=== PATIENT | female | born 2000 | race Caucasian/White ===

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

== ENCOUNTER 2018-02-11 12:40 | Emergency (ER) | payer OTHER ==
[~2018-02-11] VITALS: Ht 175.3 cm; Wt 68.0 kg
[2018-02-11 13:11] LABS: *BILIRUBIN,URIN NEGATIVE (NEGATIVE); *BLOOD, URINE 2+ (NEGATIVE); *CLARITY,URINE CLEAR (CLEAR); *COLOR,URINE YELLOW (YELLOW); *KETONES,URINE NEGATIVE (NEGATIVE); *PROTEIN,URINE NEGATIVE (NEGATIVE); *UROBILINOGEN,URINE 0.2 E.U./dl (NORMAL); LEUKOCYTE ESTERASE ,URINE TRACE (NEGATIVE); NITRITE, URINE NEGATIVE (NEGATIVE); PH,URINE 8.5 (5.0-8.0); UGLUCOSE NEGATIVE (NEGATIVE)
[2018-02-11 13:19] LABS: *URINE HCG, QUAL NEGATIVE (NEGATIVE)
[2018-02-11 13:29] LABS: BACTERIA,URINE FEW /HPF (NONE SEEN); SQUAMOUS EPITHELIAL CELL,UR FEW /HPF (NONE SEEN)
[2018-02-11 13:43] LABS: BASOPHILS % (AUTO) 0.7 % (0.0-2.0); EOSINOPHILS % (AUTO) 0.4 % (0.0-7.0); HEMOGLOBIN 12.9 g/dL (10.9-14.3); LYMPHOCYTES # (AUTO) 0.7 K/uL (20.0-40.0); LYMPHOCYTES % (AUTO) 11.1 % (20.5-74.5); MEAN CORPUSCULAR HGB CONC 35 g/dL (32.3-35.6); MEAN CORPUSCULAR VOLUME 86.3 fL (75.5-95.3); MONOCYTES # (AUTO) 0.5 K/uL (2.0-10.0); MONOCYTES % (AUTO) 8.6 % (0-11); NEUTROPHILS # (AUTO) 4.9 K/uL (1.8-8.9); NEUTROPHILS % (AUTO) 79.2 % (31.5-64.5); PLATELET COUNT (AUTO) 193 K/uL (179-408); RED BLOOD CELL COUNT(AUTO) 4.29 MIL/uL (3.63-4.92); WHITE BLOOD COUNT (AUTO) 6.2 K/uL (3.8-11.8)
[2018-02-11 13:45] LABS: *BILIRUBIN,URIN NEGATIVE (NEGATIVE); *BLOOD, URINE 2+ (NEGATIVE); *CLARITY,URINE CLEAR (CLEAR); *COLOR,URINE YELLOW (YELLOW); *KETONES,URINE NEGATIVE (NEGATIVE); *PROTEIN,URINE NEGATIVE (NEGATIVE); *UROBILINOGEN,URINE 0.2 E.U./dl (NORMAL); LEUKOCYTE ESTERASE ,URINE NEGATIVE (NEGATIVE); NITRITE, URINE NEGATIVE (NEGATIVE); PH,URINE 8.5 (5.0-8.0); UGLUCOSE NEGATIVE (NEGATIVE)
--- NOTE | 2018-02-11 13:47 | NUR ---
Radiology at bedside for US.
[2018-02-11 13:55] LABS: BACTERIA,URINE FEW /HPF (NONE SEEN); SQUAMOUS EPITHELIAL CELL,UR FEW /HPF (NONE SEEN); WBC,URINE 0-3 /HPF (0-3)
[2018-02-11 13:57] LABS: BILIRUBIN,DIRECT 0.1 mg/dL (0.0-0.2); BILIRUBIN,TOTAL 0.5 mg/dL (0.2-1.0); CREATININE 0.7 mg/dL (0.6-1.3); POTASSIUM 3.5 mmol/L (3.5-5.1); TOTAL PROTEIN, SERUM 7.4 g/dL (6.4-8.2)
--- NOTE | 2018-02-11 14:10 | NUR ---
Radiology completed US, preliminary results to JENNIFER
--- NOTE | 2018-02-11 14:18 | NUR ---
Patient discharged to home in stable conditon. Written and verbal after care instructions given. Patient verbalizes understanding of instructions.
== END 2018-02-11 14:19 | disposition home or self-care (01) ==
LOC: ER 12:43
DX: N94.6 Dysmenorrhea, unspecified (principal); N93.9 Abnormal uterine and vaginal bleeding, unspecified
CPT/HCPCS: 36415; 76856; 84703; 85025; A4663

== ENCOUNTER 2018-04-25 22:13 | Emergency (ER) | payer OTHER ==
[~2018-04-25] VITALS: Ht 175.3 cm; Wt 68.0 kg
--- NOTE | 2018-04-25 22:30 | NUR ---
Patient walked into ER c/o dysuria and polyuria since this AM
[2018-04-25 22:38] LABS: *BLOOD, URINE 3+ (NEGATIVE); *CLARITY,URINE CLOUDY (CLEAR); *COLOR,URINE YELLOW (YELLOW); *KETONES,URINE 2+ (NEGATIVE); *PROTEIN,URINE 2+ (NEGATIVE); LEUKOCYTE ESTERASE ,URINE 3+ (NEGATIVE); NITRITE, URINE NEGATIVE (NEGATIVE); PH,URINE 5.5 (5.0-8.0); UGLUCOSE NEGATIVE (NEGATIVE)
[2018-04-25 22:41] LABS: *BILIRUBIN,URIN 1+ (NEGATIVE)
[2018-04-25 22:42] LABS: *URINE HCG, QUAL NEGATIVE (NEGATIVE)
[2018-04-25 22:44] LABS: BACTERIA,URINE MODERATE /HPF (NONE SEEN); RBC,URINE 20-50 /HPF (0-3); SQUAMOUS EPITHELIAL CELL,UR FEW /HPF (NONE SEEN); WBC,URINE 50-80 /HPF (0-3)
[2018-04-25] MEDS ORDERED: ONDANSETRON ODT 4 MG TAB.RAPDIS ONE (22:56)
[2018-04-25] MEDS ORDERED: LIDOCAINE HCL 1% 20 ML VIAL ONE (22:57)
[2018-04-25] MEDS ORDERED: CEFTRIAXONE 500 MG VIAL ONE (22:57)
[2018-04-25] MEDS ORDERED: PHENAZOPYRIDINE HCL 100 MG TABLET ONE (22:58)
[2018-04-25] MEDS ORDERED: ONDANSETRON ODT 4 MG TAB.RAPDIS SL ONE (23:00)
[2018-04-25] MEDS ORDERED: PHENAZOPYRIDINE HCL 100 MG TABLET PO ONE (23:00)
[2018-04-25] MEDS ORDERED: CEFTRIAXONE 500 MG VIAL IM ONE (23:00)
--- NOTE | 2018-04-25 23:06 | NUR ---
Patient discharged to home in stable conditon. Written and verbal after care instructions given. Patient verbalizes understanding of instructions. Walked into ER with no distress noted
[2018-04-25 23:07] VITALS: BP 108/57
== END 2018-04-25 23:07 | disposition home or self-care (01) ==
LOC: ER 22:13
DX: N39.0 Urinary tract infection, site not specified (principal); R11.2 Nausea with vomiting, unspecified
CPT/HCPCS: 81001; 84703; 87086; 96372; 99284; A4663; J0696; J3490; Q0162; 87077

== ENCOUNTER 2019-08-12 09:06 | Emergency (ER) | payer MEDICAID, OTHER ==
[~2019-08-12] VITALS: Ht 175.3 cm; Wt 63.5 kg
[2019-08-12 09:31] LABS: *BILIRUBIN,URIN NEGATIVE (NEGATIVE); *BLOOD, URINE 1+ (NEGATIVE); *CLARITY,URINE CLOUDY (CLEAR); *COLOR,URINE YELLOW (YELLOW); *KETONES,URINE NEGATIVE (NEGATIVE); *UROBILINOGEN,URINE 0.2 E.U./dl (NORMAL); LEUKOCYTE ESTERASE ,URINE 2+ (NEGATIVE); NITRITE, URINE NEGATIVE (NEGATIVE); PH,URINE 6.5 (5.0-8.0); UGLUCOSE NEGATIVE (NEGATIVE)
[2019-08-12 09:42] LABS: BACTERIA,URINE MODERATE /HPF (NONE SEEN); YEAST,URINE MANY /HPF (NONE SEEN)
[2019-08-12 09:43] LABS: *URINE HCG, QUAL NEGATIVE (NEGATIVE); MUCUS,URINE MODERATE /LPF (0-FEW)
[2019-08-12] MEDS ORDERED: FLUCONAZOLE 100 MG TABLET PO ONE (09:45)
[2019-08-12] MEDS ORDERED: IBUPROFEN 600 MG TABLET PO ONE (09:45)
[2019-08-12] MEDS ORDERED: IBUPROFEN 600 MG TABLET ONE (09:56)
[2019-08-12] MEDS ORDERED: FLUCONAZOLE 100 MG TABLET ONE (09:56)
--- NOTE | 2019-08-12 10:06 | NUR ---
Patient discharged to home in stable conditon & brisk steady gait. Written and verbal after care instructions given to patient. Patient verbalizes understanding & compliance of instructions.
== END 2019-08-12 10:09 | disposition home or self-care (01) ==
LOC: ER 09:07
DX: B37.3 Candidiasis of vulva and vagina (principal)
CPT/HCPCS: 84703; 87086; A4663

== ENCOUNTER 2019-10-09 22:35 | Emergency (ER) | payer MEDICAID, OTHER ==
[~2019-10-09] VITALS: Ht 175.3 cm; Wt 68.0 kg
--- NOTE | 2019-10-09 22:58 | NUR ---
PATIENT WAS MSE BY DR CABALLERO IN ROOM 05A.
[2019-10-09] MEDS ORDERED: IBUPROFEN 600 MG TABLET PO ONE (23:00)
[2019-10-09] MEDS ORDERED: ACETAMINOPHEN ES 500 MG TABLET PO ONE (23:00)
[2019-10-09] MEDS ORDERED: IBUPROFEN 600 MG TABLET ONE (23:10)
[2019-10-09] MEDS ORDERED: ACETAMINOPHEN ES 500 MG TABLET ONE (23:10)
[2019-10-09] MEDS ORDERED: DEXAMETHASONE SOD PHOSPHATE 4 MG INJ IM ONE (23:15)
[2019-10-09] MEDS ORDERED: PENICILLIN V POTASSIUM 500 MG TABLET PO ONE (23:15)
[2019-10-09] MEDS ORDERED: DEXAMETHASONE SOD PHOSPHATE 4 MG INJ ONE (23:15)
[2019-10-09] MEDS ORDERED: PENICILLIN V POTASSIUM 500 MG TABLET ONE (23:16)
--- NOTE | 2019-10-09 23:26 | NUR ---
Patient discharged to home in stable condition. Written and verbal after care instructions given. Patient verbalizes understanding of instructions.
[2019-10-09 23:28] VITALS: BP 112/73
[2019-10-09 23:37] LABS: *URINE HCG, QUAL NEGATIVE (NEGATIVE)
== END 2019-10-09 23:30 | disposition home or self-care (01) ==
LOC: ER 22:35
DX: J02.9 Acute pharyngitis, unspecified (principal); R50.9 Fever, unspecified
CPT/HCPCS: 84703; 96372; 99284; J1100; A4663; A9150

== ENCOUNTER 2020-04-26 08:32 | Emergency (ER) | payer OTHER ==
[~2020-04-26] VITALS: Ht 175.3 cm; Wt 70.3 kg
[2020-04-26 08:58] LABS: *BILIRUBIN,URIN NEGATIVE (NEGATIVE); *BLOOD, URINE 2+ (NEGATIVE); *COLOR,URINE YELLOW (YELLOW); *KETONES,URINE NEGATIVE (NEGATIVE); *UROBILINOGEN,URINE 0.2 E.U./dl (NORMAL); LEUKOCYTE ESTERASE ,URINE 1+ (NEGATIVE); NITRITE, URINE POSITIVE (NEGATIVE); UGLUCOSE NEGATIVE (NEGATIVE)
[2020-04-26] MEDS ORDERED: IV NORMAL SALINE 1000 ML BAG IV ONE (09:00)
[2020-04-26 09:06] LABS: BASOPHILS % (AUTO) 0.4 % (0.0-2.0); EOSINOPHILS % (AUTO) 0.4 % (0.0-7.0); HEMATOCRIT 37.9 % (31.2-41.9); HEMOGLOBIN 13.1 g/dL (10.9-14.3); LYMPHOCYTES # (AUTO) 1.6 K/uL (20.0-40.0); MEAN CORPUSCULAR HEMOGLOBIN 30.3 uug (24.7-32.8); MEAN CORPUSCULAR HGB CONC 35 g/dL (32.3-35.6); MEAN CORPUSCULAR VOLUME 87.5 fL (75.5-95.3); MONOCYTES # (AUTO) 0.6 K/uL (2.0-10.0); MONOCYTES % (AUTO) 6.6 % (0.0-11.0); NEUTROPHILS # (AUTO) 7.3 K/uL (1.8-8.9); NEUTROPHILS % (AUTO) 75.6 % (38.5-71.5); PLATELET COUNT (AUTO) 238 K/uL (179-408); RED BLOOD CELL COUNT(AUTO) 4.33 MIL/uL (3.63-4.92); WHITE BLOOD COUNT (AUTO) 9.6 K/uL (3.8-11.8)
[2020-04-26 09:18] LABS: BILIRUBIN,DIRECT 0.1 mg/dL (0.0-0.2); BILIRUBIN,TOTAL 0.4 mg/dL (0.2-1.0); CREATININE 0.8 mg/dL (0.6-1.3); POTASSIUM 3.7 mmol/L (3.5-5.1); TOTAL PROTEIN, SERUM 6.9 g/dL (6.4-8.2)
[2020-04-26 10:36] LABS: BACTERIA,URINE MODERATE /HPF (NONE SEEN); SQUAMOUS EPITHELIAL CELL,UR MODERATE /HPF (NONE SEEN)
[2020-04-26 10:37] LABS: WBC,URINE 50-80 /HPF (0-3)
[2020-04-26] MEDS ORDERED: SULFAMETH/TRIMETH 800/160 MG TABLET ONE (10:40)
[2020-04-26 10:45] LABS: *CLARITY,URINE CLOUDY (CLEAR)
[2020-04-26] MEDS ORDERED: SULFAMETH/TRIMETH 800/160 MG TABLET PO ONE (10:45)
--- NOTE | 2020-04-26 10:45 | NUR ---
Patient discharged to home in stable condition. Written and verbal after care instructions given. Patient verbalizes understanding of instructions. Stressed follow up or return to ER for worsening s/s.pt walks in steady gait.
[2020-04-26 11:02] VITALS: BP 109/69
== END 2020-04-26 10:50 | disposition home or self-care (01) ==
LOC: ER 08:32
DX: N39.0 Urinary tract infection, site not specified (principal)
CPT/HCPCS: 36415; 83690; 85025; 85730; 87086; A4663; J7030

== ENCOUNTER 2020-11-07 12:42 | Emergency (ER) | payer OTHER ==
[~2020-11-07] VITALS: Ht 175.3 cm; Wt 77.1 kg
--- NOTE | 2020-11-07 13:00 | NUR ---
Dr Cool at the bedside for MSE.
[2020-11-07 13:29] VITALS: BP 106/64
--- NOTE | 2020-11-07 13:30 | NUR ---
Patient discharged to home in stable condition. Written and verbal after care instructions given. Patient verbalizes understanding of instructions. Stressed follow up or return to ER for worsening s/s.
== END 2020-11-07 13:30 | disposition home or self-care (01) ==
LOC: ER 12:42
DX: H00.012 Hordeolum externum right lower eyelid (principal)
CPT/HCPCS: A4663

== ENCOUNTER 2021-02-07 20:39 | Emergency (ER) | payer OTHER ==
[~2021-02-07] VITALS: Ht 175.3 cm; Wt 72.6 kg
[2021-02-07] MEDS ORDERED: KETOROLAC TROMETHAMINE 60 MG INJ IM ONE (21:17)
[2021-02-07 21:32] LABS: *URINE HCG, QUAL NEG (NEGATIVE)
[2021-02-07 21:33] LABS: BASOPHILS # (AUTO) 0.1 K/uL (0.0-8.0); BASOPHILS % (AUTO) 0.6 % (0.0-2.0); EOSINOPHILS # (AUTO) 0.1 K/uL (0.0-0.7); EOSINOPHILS % (AUTO) 0.8 % (0.0-7.0); HEMATOCRIT 36.9 % (31.2-41.9); HEMOGLOBIN 12.8 g/dL (10.9-14.3); LYMPHOCYTES # (AUTO) 2.6 K/uL (20.0-40.0); LYMPHOCYTES % (AUTO) 26.6 % (20.5-51.5); MEAN CORPUSCULAR HEMOGLOBIN 29.9 uug (24.7-32.8); MEAN CORPUSCULAR HGB CONC 35 g/dL (32.3-35.6); MEAN CORPUSCULAR VOLUME 86.2 fL (75.5-95.3); MONOCYTES # (AUTO) 0.7 K/uL (2.0-10.0); MONOCYTES % (AUTO) 7.4 % (0.0-11.0); NEUTROPHILS # (AUTO) 6.2 K/uL (1.8-8.9); NEUTROPHILS % (AUTO) 64.6 % (38.5-71.5); PLATELET COUNT (AUTO) 249 K/uL (179-408); RED BLOOD CELL COUNT(AUTO) 4.29 MIL/uL (3.63-4.92); WHITE BLOOD COUNT (AUTO) 9.6 K/uL (3.8-11.8)
[2021-02-07 21:37] LABS: CARBON DIOXIDE 27 mmol/L (21-32); CHLORIDE 104 mmol/L (98-107); CREATININE 0.8 mg/dL (0.6-1.3); GLUCOSE 114 mg/dL (74-106); UREA NITROGEN, BLOOD 8 mg/dL (7-18)
[2021-02-07 21:43] LABS: ALANINE AMINOTRANSFERASE 11 U/L (14-59); ALKALINE PHOSPHATASE 75 U/L (50-136); ASPARTATE AMINOTRANSFERASE 13 U/L (15-37); BILIRUBIN,DIRECT 0.1 mg/dL (0.0-0.2); BILIRUBIN,TOTAL 0.3 mg/dL (0.2-1.0); TOTAL PROTEIN, SERUM 7.4 g/dL (6.4-8.2)
[2021-02-07 21:44] LABS: *AMPHETAMINE, URINE NEGATIVE (NEGATIVE); *CANNABINOID, URINE NEGATIVE (NEGATIVE); *COCCAINE, URINE NEGATIVE (NEGATIVE); *OPIATE, URINE NEGATIVE (NEGATIVE); *PHENCYCLIDINE SCREEN,URINE NEGATIVE (NEGATIVE)
[2021-02-07 21:53] LABS: ETHANOL < 3 MG/DL (0-0)
[2021-02-08] MEDS ORDERED: SWABABLE VALVE TRANSFER SET EA MC ONE (00:26)
[2021-02-08] MEDS ORDERED: IV NORMAL SALINE 250 ML IV ONE (00:26)
[2021-02-08] MEDS ORDERED: IOHEXOL 350 100 ML INFUS..BTL ONE (00:26)
[2021-02-08 01:41] VITALS: BP 110/68
[2021-02-08 05:47] LABS: *BILIRUBIN,URIN NEGATIVE (NEGATIVE); *BLOOD, URINE NEGATIVE (NEGATIVE); *CLARITY,URINE SLIGHTLY CLOUDY (CLEAR); *COLOR,URINE YELLOW (YELLOW); *KETONES,URINE NEGATIVE (NEGATIVE); *UROBILINOGEN,URINE 0.2 E.U./dl (NORMAL); LEUKOCYTE ESTERASE ,URINE TRACE (NEGATIVE); NITRITE, URINE NEGATIVE (NEGATIVE); PH,URINE 6.5 (5.0-8.0); UGLUCOSE NEGATIVE (NEGATIVE)
[2021-02-08 06:13] LABS: BACTERIA,URINE MODERATE /HPF (NONE SEEN); RBC,URINE 0-3 /HPF (0-3)
[2021-02-08 06:14] LABS: MUCUS,URINE FEW /LPF (0-FEW); SQUAMOUS EPITHELIAL CELL,UR MANY /HPF (NONE SEEN)
[2021-02-11 15:46] LABS: *GC NAA Negative; *TRIC.VAG. NAA Negative
== END 2021-02-08 01:43 | disposition home or self-care (01) ==
LOC: ER 20:49
DX: R55 Syncope and collapse (principal); R42 Dizziness and giddiness; R00.2 Palpitations; N89.8 Other specified noninflammatory disorders of vagina; R79.1 Abnormal coagulation profile
CPT/HCPCS: 36415; 70450; 71275; 80048; 80076; 80307; 80320; 81001; 84703; 85025; 85379; 87086; 87491; 93005; 99285; Q9967; A4663; G0480; J1885; J7050

== ENCOUNTER 2021-09-13 14:49 | Emergency (ER) | payer SELFPAY ==
--- NOTE | 2021-09-13 15:03 | NUR ---
pt left without being triaged.
== END 2021-09-13 15:04 | disposition left against medical advice (07) ==
LOC: ER 14:49
DX: Z53.21 Procedure and treatment not carried out due to patient leaving prior to being seen by health care provider (principal)

== ENCOUNTER 2023-05-18 00:01 | Emergency (ER) | payer OTHER ==
[~2023-05-18] VITALS: Ht 175.3 cm; Wt 90.7 kg
[2023-05-18] MEDS ORDERED: MORPHINE SULFATE 2 MG/1 ML DISP.SYRIN IV ONE (00:45)
[2023-05-18] MEDS ORDERED: ONDANSETRON 4 MG/2 ML VIAL IV ONE (00:45)
[2023-05-18] MEDS ORDERED: IV NORMAL SALINE 1000 ML BAG IV ONE (00:45)
[2023-05-18] MEDS ORDERED: ONDANSETRON 4 MG/2 ML VIAL ONE (00:47)
[2023-05-18] MEDS ORDERED: MORPHINE SULFATE 4 MG/1 ML DISP.SYRIN ONE (00:47)
[2023-05-18] MEDS ORDERED: MORPHINE SULFATE 2 MG/1 ML DISP.SYRIN ONE (00:48)
[2023-05-18 01:06] LABS: BASOPHILS # (AUTO) 0.2 K/UL (0.0-0.2); BASOPHILS % (AUTO) 1.5 % (0.0-2.0); EOSINOPHILS # (AUTO) 0.2 K/uL (0.0-0.7); EOSINOPHILS % (AUTO) 1.7 % (0.0-7.0); HEMOGLOBIN 13.1 g/dL (10.9-14.3); LYMPHOCYTES # (AUTO) 1.5 K/uL (0.8-4.8); LYMPHOCYTES % (AUTO) 12.9 % (20.5-51.5); MEAN CORPUSCULAR HEMOGLOBIN 28.5 uug (24.7-32.8); MEAN CORPUSCULAR HGB CONC 33 g/dL (32.3-35.6); MEAN CORPUSCULAR VOLUME 85.3 fL (75.5-95.3); MONOCYTES # (AUTO) 0.9 K/uL (0.1-1.30); MONOCYTES % (AUTO) 7.3 % (0.0-11.0); NEUTROPHILS # (AUTO) 8.9 K/uL (1.8-8.9); NEUTROPHILS % (AUTO) 76.6 % (38.5-71.5); PLATELET COUNT (AUTO) 280 K/uL (179-408); RED BLOOD CELL COUNT(AUTO) 4.58 MIL/uL (3.63-4.92); RED CELL DISTRIBUTION WIDTH 13.2 % (12.3-17.7); WHITE BLOOD COUNT (AUTO) 11.6 K/uL (3.8-11.8)
[2023-05-18 01:27] LABS: ALBUMIN 3.2 g/dL (3.4-5.0); BILIRUBIN,DIRECT 0.1 mg/dL (0.0-0.2); BILIRUBIN,TOTAL 0.3 mg/dL (0.2-1.0); CALCIUM 8.1 mg/dL (8.5-10.1); CREATININE 0.7 mg/dL (0.6-1.3); POTASSIUM 4.1 mmol/L (3.5-5.1); TOTAL PROTEIN, SERUM 7.1 g/dL (6.4-8.2)
[2023-05-18 01:58] LABS: *BILIRUBIN,URIN NEGATIVE (NEGATIVE); *CLARITY,URINE CLEAR (CLEAR); *COLOR,URINE YELLOW (YELLOW); *KETONES,URINE NEGATIVE (NEGATIVE); *PROTEIN,URINE NEGATIVE (NEGATIVE); *UROBILINOGEN,URINE 0.2 E.U./dl (NORMAL); LEUKOCYTE ESTERASE ,URINE NEGATIVE (NEGATIVE); NITRITE, URINE NEGATIVE (NEGATIVE); PH,URINE 5.5 (5.0-8.0); UGLUCOSE NEGATIVE (NEGATIVE)
[2023-05-18 02:10] LABS: *BLOOD, URINE NEGATIVE (NEGATIVE)
[2023-05-18 02:11] LABS: *URINE HCG, QUAL NEGATIVE (NEGATIVE)
[2023-05-18] MEDS ORDERED: IOHEXOL 300MG/ML 100 ML INFUS..BTL ONE (04:47)
[2023-05-18] MEDS ORDERED: IV NORMAL SALINE 250 ML IV ONE (04:47)
[2023-05-18] MEDS ORDERED: SWABABLE VALVE TRANSFER SET EA MC ONE (04:47)
[2023-05-18 06:37] VITALS: BP 92/53; TEMP 98; O2SAT 98
== END 2023-05-18 06:25 | disposition home or self-care (01) ==
LOC: ER 00:05
DX: R10.31 Right lower quadrant pain (principal)
CPT/HCPCS: 99285; 74177; 96374; 96375; 80076; 80048; 81003; 84703; 83690; 85025; 36415; J2405; Q9967; J2270 ×2; J7040; A4663

== ENCOUNTER 2023-11-10 11:49 | Emergency (ER) | payer OTHER ==
[~2023-11-10] VITALS: Ht 175.3 cm; Wt 95.3 kg
[2023-11-10] MEDS ORDERED: IBUPROFEN 800 MG TABLET ONE (12:15)
[2023-11-10] MEDS: IBUPROFEN 800 MG TABLET PO ONE (12:16)
[2023-11-10 12:41] LABS: BASOPHILS % (AUTO) 0.7 % (0.0-2.0); EOSINOPHILS # (AUTO) 0.2 K/uL (0.0-0.7); EOSINOPHILS % (AUTO) 3.2 % (0.0-7.0); HEMATOCRIT 38.8 % (31.2-41.9); HEMOGLOBIN 13.2 g/dL (10.9-14.3); LYMPHOCYTES # (AUTO) 1.2 K/uL (0.8-4.8); MEAN CORPUSCULAR HEMOGLOBIN 28.9 uug (24.7-32.8); MEAN CORPUSCULAR HGB CONC 34 g/dL (32.3-35.6); MEAN CORPUSCULAR VOLUME 85.1 fL (75.5-95.3); MONOCYTES # (AUTO) 0.8 K/uL (0.1-1.30); MONOCYTES % (AUTO) 11.9 % (0.0-11.0); NEUTROPHILS # (AUTO) 4.4 K/uL (1.8-8.9); NEUTROPHILS % (AUTO) 66.2 % (38.5-71.5); PLATELET COUNT (AUTO) 289 K/uL (179-408); RED BLOOD CELL COUNT(AUTO) 4.56 MIL/uL (3.63-4.92); RED CELL DISTRIBUTION WIDTH 13.4 % (12.3-17.7); WHITE BLOOD COUNT (AUTO) 6.7 K/uL (3.8-11.8)
[2023-11-10 12:42] LABS: DIFFERENTIAL COMMENT 1
[2023-11-10 12:49] LABS: CREATININE 0.7 mg/dL (0.6-1.3); POTASSIUM 4.2 mmol/L (3.5-5.1)
[2023-11-10 12:58] LABS: CALCIUM 8.8 mg/dL (8.5-10.1)
[2023-11-10] MEDS ORDERED: HYDR-3980 PO (13:03)
[2023-11-10 13:16] VITALS: BP 110/68; O2SAT 97
== END 2023-11-10 13:17 | disposition home or self-care (01) ==
LOC: ER 11:49
DX: J20.9 Acute bronchitis, unspecified (principal); Z79.899 Other long term (current) drug therapy
CPT/HCPCS: 36415; 71045; 85025; A4606; A4663

== ENCOUNTER 2024-08-08 19:18 | Emergency (ER) | payer OTHER ==
[~2024-08-08] VITALS: Ht 175.3 cm; Wt 99.8 kg
[~2024-08-08 19:18] MED LIST: HYDR-3980 PO
[2024-08-08] MEDS ORDERED: ONDA4TAB11 PO (20:43)
[2024-08-08] MEDS: ONDANSETRON ODT 4 MG TAB.RAPDIS SL ONE (20:45)
[2024-08-08] MEDS ORDERED: ONDANSETRON ODT 4 MG TAB.RAPDIS ONE (20:45)
[2024-08-08 20:56] VITALS: BP 127/67; O2SAT 99
== END 2024-08-08 20:57 | disposition home or self-care (01) ==
LOC: ER 19:18
DX: R10.9 Unspecified abdominal pain (principal); N91.1 Secondary amenorrhea; M79.631 Pain in right forearm; R10.2 Pelvic and perineal pain; R11.0 Nausea; Z79.899 Other long term (current) drug therapy; Z88.7 Allergy status to serum and vaccine
CPT/HCPCS: 36415; A4606; A4663; Q0162

== ENCOUNTER 2024-10-14 15:22 | Emergency (ER) | payer OTHER ==
[~2024-10-14 15:22] MED LIST changes: +AMOX-430 PO; +BENZ-13 PO; +FLUT16SP16 BNOSTRILS; +ONDA4TAB11 PO
== END 2024-10-14 15:57 | disposition left against medical advice (07) ==
LOC: ER 15:22
DX: R07.0 Pain in throat (principal); R50.9 Fever, unspecified; Z53.21 Procedure and treatment not carried out due to patient leaving prior to being seen by health care provider